=== PATIENT | female | born 1965 | race Caucasian/White ===

== ENCOUNTER 2017-09-20 16:22 | Emergency (ER) | payer OTHER ==
[~2017-09-20] VITALS: Ht 167.6 cm; Wt 66.0 kg
[~2017-09-20 16:22] MED LIST: AMBIEN10 MG PO; ERYTHROMYC1 APPLICAT LEFT EYE; HYDROCODON-ACE1 EAC7 PO; LEXAPRO20 MG PO; LORAZEPAM0.5 MG PO; NEXIUM40 MG PO; RITALIN LA30 MG PO; WELLBUTRIN XL300 MG PO; ZYRTEC10 M2 PO
[2017-09-20 17:18] LABS: BASOPHIL (%) 0.2 % (0-1); BASOPHIL COUNT 0.1 K/uL (0-0.1); EOSINOPHIL (%) 0 % (0-5); HEMATOCRIT 40.6 % (36.0-46.0); HEMOGLOBIN 14.5 G/DL (11.9-15.5); IMMATURE GRANULOCYTE (%) 0.9 % (0.0-0.7); LYMPHOCYTE (%) 4.2 % (15-42); LYMPHOCYTE COUNT 1.1 K/uL (1.0-2.8); MCH 30.9 PG (29.0-34.0); MCHC 35.7 G/DL (30.0-36.0); MCV 86.4 FL (83-99); MONOCYTE (%) 5.7 % (3-12); MONOCYTE COUNT 1.5 K/uL (0-0.8); NEUTROPHIL COUNT 23.2 K/uL (1.8-6.4); PLATELET COUNT 159 K/uL (156-360); RBC DIS.WIDTH-CV 13.2 % (11.8-14.6); RBC DIS.WIDTH-SD 41.7 % (39-53)
[2017-09-20 17:29] LABS: CHLORIDE 97 mEq/L (99-109); SODIUM 132 mEq/L (136-147)
[2017-09-20 17:31] LABS: GLUCOSE 125 mg/dL (70-99)
[2017-09-20 17:35] LABS: CREATININE 0.9 mg/dL (0.6-1.3); GFR ESTIMATE (CALCULATED) > 59 mL/min/
[2017-09-20 17:36] LABS: UREA NITROGEN (BUN) 7 mg/dL (9-23)
[2017-09-20 17:46] LABS: QUANTITATIVE HCG < 4.0 MIU/ML
[2017-09-20 20:18] LABS: APPEARANCE SL.HAZY ((CLEAR)); BILIRUBIN NEGATIVE; BLOOD SMALL; COLOR YELLOW ((YELLOW)); GLUCOSE (STRIP) NEGATIVE; KETONES NEGATIVE; LEUKOCYTES NEGATIVE; NITRITE NEGATIVE; PROTEIN (STRIP) 30; UROBILINOGEN 0.2 MG/DL (0.2-1.0)
[2017-09-20 20:23] LABS: BACTERIA 1+ /HPF; EPITHELIAL CELLS 2+ /HPF; MUCUS TRACE /LPF; RED BLOOD CELLS NONE SEEN /HPF (0-5)
[2017-09-20] MEDS ORDERED: ZOFRAN ODT4 MG PO (20:36)
[2017-09-20] MEDS ORDERED: ZITHROMAX Z-PA250 MG PO (20:36)
[2017-09-20] MEDS ORDERED: VENTOLIN HFA18 GM IH (20:37)
[2017-09-20 21:21] VITALS: BP 94/53
== END 2017-09-20 21:35 | disposition home or self-care (01) ==
LOC: EME 16:22
PROVIDERS: Physician Assistant
DX: J18.9 Pneumonia, unspecified organism (principal); M79.7 Fibromyalgia; K50.90 Crohn's disease, unspecified, without complications; F32.9 Major depressive disorder, single episode, unspecified; F41.9 Anxiety disorder, unspecified; F17.200 Nicotine dependence, unspecified, uncomplicated; Z87.19 Personal history of other diseases of the digestive system
CPT/HCPCS: 71046; 80048; 81003; 83605; 84702; 85025; 87040; 94640; 99281; 99285; J0456; J0696; J2405; J2930; J7030